=== PATIENT | male | born 1970 | race Caucasian/White ===

== ENCOUNTER 2017-09-24 15:18 | Emergency (ER) | payer SELFPAY ==
[2017-09-24] MEDS ORDERED: KETOROLAC TROMETHAMINE 60 MG/2 ML SDV IM ONE (18:46)
[2017-09-24] MEDS ORDERED: HYDROCODONE/ACETAMINOPHEN 5-325 MG (6 TAB/ER DISP) PO PRN ×2 (18:49)
[2017-09-24] MEDS ORDERED: HYDROCODONE/ACETAMINOPHEN 5-325 MG TABLET PO ONE (18:51)
--- NOTE | 2017-09-24 18:59 | ER Document Report ---
ED General - General Chief Complaint: Toothache Stated Complaint: TOOTH PAIN, BACK PAIN Time Seen by Provider: 09/24/17 17:59 Mode of Arrival: Ambulatory Information source: Patient, Friend - HPI Notes: A 47-year-old male presents today with complaints of left upper dental pain that has been bothering for approximately 3 weeks. Started taking his son's dose of PCN VK with minimal relief. pain is 6/10, achy and throbbing with eating. denies any fevers or chills. denies cp, sob, n/v/d, blurred vision, double vision. does not have a dentist. better with advil, worse with eating hard foods. reports cold sensitivity. smoker [id number] years. No throat swelling and difficulty tolerating secretions. Patient reports she has had chronic back pain, states his back pain is been bothering him for the last 6 years. Denies any bowel or bladder dysfunction. Denies any saddle anesthesia. Denies any numbness or tingling down bilateral lower extremities. Has not seen a orthopedic spinal specialist or primary care in the last year. Reports pain is 4 out of 10 in his lower back. Patient is in need of a primary care provider. - Related Data Allergies/Adverse Reactions: No Known Allergies Allergy (Unverified 09/24/17 15:21) Past Medical History - General Information source: Patient, Friend - Social History Smoking Status: Current Every Day Smoker Family History: Arthritis, CAD, Hyperlipidemia, Hypertension Patient has suicidal ideation: No Patient has homicidal ideation: No Renal/ Medical History: Denies: Hx Peritoneal Dialysis Review of Systems - Review of Systems Constitutional: No symptoms reported EENT: See HPI Cardiovascular: No symptoms reported Respiratory: No symptoms reported Gastrointestinal: No symptoms reported Genitourinary: No symptoms reported Male Genitourinary: No symptoms reported Musculoskeletal: No symptoms reported Skin: No symptoms reported Hematologic/Lymphatic: No symptoms reported Neurological/Psychological: No symptoms reported Physical Exam - Vital signs Vitals: Temp Pulse Resp BP Pulse Ox 98.3 F 79 18 133/102 H 98 09/24/17 15:24 09/24/17 15:24 09/24/17 15:24 09/24/17 15:24 09/24/17 15:24 - Notes Notes: PHYSICAL EXAMINATION: GENERAL: Well-appearing, well-nourished and in no acute distress. HEAD: Atraumatic, normocephalic. EYES: Pupils equal round and reactive to light, extraocular movements intact, sclera anicteric, conjunctiva are normal. ENT: Nares patent, oropharynx clear without exudates. Moist mucous membranes.# 15, 16 gingiva with swelling, erythema and induration. No drainage or open wounds. No fluctuance. No facial swelling. Poor oral dentition, left upper jaw with extensive dental caries, no definite swelling or effusion. NECK: Normal range of motion, supple without lymphadenopathy LUNGS: Breath sounds clear to auscultation bilaterally and equal. No wheezes rales or rhonchi. HEART: Regular rate and rhythm without murmurs ABDOMEN: Soft, nontender, nondistended abdomen. No guarding, no rebound. No masses appreciated. Musculoskeletal: Normal range of motion, no pitting or edema. No cyanosis. straight leg test positive bilaterally. Pain with flexion and extension at 30 degrees. Normal hip rotation. DTR +2 in BLE equally. Normal motor and sensory function in BLE equally. Distal pulses + 2 BLE equally. Noted paraspinal tenderness near L2 and L3. No spinal tenderness. No CVA tenderness bilaterally. Femoral pulses + 2 bilaterally and equally. No abrasions, scars, lacerations, ecchymosis of any recent trauma. NEUROLOGICAL: Cranial nerves grossly intact. Normal speech, normal gait. Normal sensory, motor exams PSYCH: Normal mood, normal affect. SKIN: Warm, Dry, normal turgor, no rashes or lesions noted. Course - Re-evaluation Re-evalutation: 09/24/17 19:07 Cici with patient the importance of utilizing community resources such as the community care clinic. Discussed taking antibiotics as directed. Advised patient to follow-up with community resources for his chronic back pain as well as for his dental needs. Patient verbalized understanding of the resources, we discussed multiple ones, stated he would follow-up with community resources. Both patient and agreed with plan of care and agree with plan of care. 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 Most commonly the pain is due to straining of the muscles and ligaments in the low back. Usual treatment includes: (1) Rest on a firm surface. Avoid lying on your stomach. (2) Ice pack the painful area. After a few days, gentle heat may be used intermittently to relax the area, or ice packs can be continued. (3) Medication may be needed -- muscle relaxers and antiinflammatory medicines are commonly used. (4) As the back improves, exercises are prescribed to strengthen the back and abdominal muscles. Your doctor will advise you on the proper care for your back at each stage in your recovery. You may be better in a few days -- or healing may take several weeks. If new symptoms of a "herniated disc" (radiation of pain, numbness, or tingling down the back of the leg or weakness in the leg) occur, you should be re-examined. Further testing may be necessary. PAIN MEDICATION INJECTION: You have received an injection of a pain medication. You should experience significant pain relief within 45 minutes. If this injection was a narcotic -- it will impair your judgement, slow your reaction time and make you sleepy (as well as relieve your pain). Narcotics also can cause nausea. You should not drive, work with machinery, or perform any task requiring mental alertness until all effects of the medication are gone -- six to eight hours. Do not take any alcohol, or sedatives, and do not take any other medication without checking with your physician. ORAL NARCOTIC MEDICATION: You have been given a prescription for pain control. This medication is a narcotic. It's best taken with food, as nausea can result if taken on an empty stomach. Don't operate machinery or drive within six hours of taking this medication. Do not combine this medicine with alcohol, or with any medication which can cause sedation (such as cold tablets or sleeping pills) unless you get permission from the physician. Narcotics tend to cause constipation. If possible, drink plenty of fluids and eat a diet high in fiber and fruits. Please be aware that prescription narcotics also have the potential for abuse. People become addicted to these medications because of the general sense of wellbeing that they induce. This feeling along with a significant reduction in tension, anxiety, and aggression provides a stimulating seductive quality to these drugs. Once your pain is under control, we encourage you to discard your unused narcotics. MUSCLE RELAXERS: Muscle relaxing medications are usually prescribed for acute muscle spasm or injury to the neck and back. They are often combined with antiinflammatory pain medication for increased relief. You may stop the muscle relaxer when the pain and stiffness have improved. Start the medication again if spasms recur. Muscle relaxers may cause drowsiness, especially with the first dose. Do not operate machinery or drive while under the effects of the medication. Most muscle relaxers last up to 24 hours. Do not combine the medication with alcohol. ICE PACKS: Apply ice packs frequently against the painful area. Many different schedules are recommended, such as "20 minutes on, 20 minutes off" or "one hour ice, two hours rest." If you need to work, you may need to go longer between ice treatments. You should plan to have the area ice packed AT LEAST one fourth of the time. The ice should be applied over the wrap, tape, or splint, or over a layer of cloth -- not directly against the skin. Some ice bags have a built-in cloth and can be put directly on the skin. WARM PACKS: After approximately two days, apply gentle heat (such as a heating pad or hot water bottle) for about 20 to 30 minutes about every two hours -- at least four times daily. Warmth and elevation will help you make a more rapid recovery , and will ease the pain considerably. Do not use HOT heat, and never apply heat for longer than 30 minutes. The continuous heat can invisibly damage skin and muscles -- even when no burn is seen on the surface. Damaged muscles can make you MORE sore. FOLLOW-UP CARE: If you have been referred to a physician for follow-up care, call the physician s office for an appointment as you were instructed or within the next two days. If you experience worsening or a significant change in your symptoms, notify the physician immediately or return to the Emergency Department at any time for re-evaluation. TOOTHACHE: Your pain is due to dental decay. The tooth must be repaired in order for you to feel better. You will, therefore, be referred to a dentist. We do not have dentists on the staff at [facility]. Severe swelling or drainage around a tooth usually means a dental abscess. This also requires evaluation and treatment by the dentist, but antibiotics may be prescribed while awaiting dental treatment. You should be rechecked immediately if you develop major swelling of the face, increasing pain, a lump in the jaw or gums, headache, difficulty swallowing, or fever. ORAL NARCOTIC MEDICATION: You have been given a prescription for pain control. This medication is a narcotic. It's best taken with food, as nausea can result if taken on an empty stomach. Don't operate machinery or drive within six hours of taking this medication. Do not combine this medicine with alcohol, or with any medication which can cause sedation (such as cold tablets or sleeping pills) unless you get permission from the physician. Narcotics tend to cause constipation. If possible, drink plenty of fluids and eat a diet high in fiber and fruits. Please be aware that prescription narcotics also have the potential for abuse. People become addicted to these medications because of the general sense of wellbeing that they induce. This feeling along with a significant reduction in tension, anxiety, and aggression provides a stimulating seductive quality to these drugs. Once your pain is under control, we encourage you to discard your unused narcotics. CLINDAMYCIN: You have been given a prescription for the antibiotic clindamycin. It is often prescribed for infections in the mouth, such as dental infections or abscesses, and for skin infections due to MRSA. It's important that you take all the medication, unless instructed otherwise by your physician. Failure to complete the entire course can result in relapse of your condition. Common side effects of antibiotics include nausea, intestinal cramping, or diarrhea. Women may develop vaginal yeast infections, and babies can get yeast (thrush) in the mouth following the use of antibiotics. Contact your physician if you develop significant side effects from this medication. Allergy to this antibiotic can result in hives, wheezing, faintness, or itching. If symptoms of allergy occur, stop the medication and call the doctor. FOLLOW-UP CARE: You have been referred for follow-up care to the dentists listed below. Call the dentists office for an appointment as you were instructed or within the next two days. If you experience worsening or a significant change in your symptoms, notify the physician immediately or return to the Emergency Department at any time for re-evaluation. [facility] [address] [place], [place] [phone] [facility] [address] [place] [address] [facility] [address] [facility] [address] [facility] [address] [email or web address] [address] [place] [address] Saturday- 8:00am to 5:00 pm Will see patients from other [facility]. Charges based on income and family size and accepts Medicare, Medicaid, and Insurances Will pull molars [facility] [address] Hours of Operation 8:00 am - 4:30 pm weekdays The following dental offices accept Medicaid: [facility] Dr. Gordon Dr. Oglesby Dr. Zhu Dr. Rice Jovan Alfred Lutsavage, and [place] oral surgery Dr. Gonzalez ([place]) Dr. Hubbard ([place]ale Goldman) [facility] Drs. Brown and Jam ([place]) Dr. Garza ([place]) [facility] Dr. Lira ([place]) Drs. Frias and ([place]) Medicaid Care Line take oral abx as directed with food, eat yogurt daily to prevent loose stool. Take the medication as directed, do not drive, drink, operate machinery while taking medication. Warm compress to face 20 minutes on 20 minutes off several times a day. Follow up with dentist within 3 days. Follow up with community care clinic as well. Return immediately for any new or worsening symptoms. Follow up with primary care provider, call tomorrow to make followup appointment. Prescriptions: Cephalexin [Cephalexin 500 MG Tablet] 1 tab PO BID #20 tablet Referrals: IMRLANDE AGUILERA DO [NO LOCAL MD] - Follow up as needed FAINA RAPP MD [ACTIVE STAFF] - Follow up as needed
[2017-09-24 19:39] VITALS: BP 142/99
== END 2017-09-24 19:20 | disposition home or self-care (01) ==
LOC: ER 15:18
DX: K02.9 Dental caries, unspecified (principal); K08.89 Other specified disorders of teeth and supporting structures; M54.5 Low back pain; G89.29 Other chronic pain; F17.200 Nicotine dependence, unspecified, uncomplicated
CPT/HCPCS: 99282; 96372; J1885

== ENCOUNTER 2019-11-22 09:53 | Emergency (ER) | payer SELFPAY ==
[2019-11-22] MEDS ORDERED: LISINOPRIL 10 MG TABLET PO ONE (11:16)
[2019-11-22] MEDS ORDERED: AMLODIPINE BESYLATE 10 MG TABLET PO ONE (11:17)
[2019-11-22] MEDS ORDERED: AMLODIPINE BESYLATE 5 MG TABLET PO ONE (11:17)
--- NOTE | 2019-11-22 11:46 | RADIOLOGY REPORT (SQ) ---
EXAM DESCRIPTION: CHEST SINGLE VIEW COMPLETED DATE/TIME: 11/22/2019 11:28 am REASON FOR STUDY: HYPERTENSION COMPARISON: None. EXAM PARAMETERS: NUMBER OF VIEWS: One view. TECHNIQUE: Single frontal radiographic view of the chest acquired. RADIATION DOSE: NA LIMITATIONS: None. FINDINGS: LUNGS AND PLEURA: No opacities, masses or pneumothorax. No pleural effusion. MEDIASTINUM AND HILAR STRUCTURES: No masses. Contour normal. HEART AND VASCULAR STRUCTURES: Heart normal in size. Normal vasculature. BONES: No acute findings. HARDWARE: None in the chest. OTHER: No other significant finding. IMPRESSION: NO ACUTE RADIOGRAPHIC FINDING IN THE CHEST. TECHNICAL DOCUMENTATION: JOB ID: [id number] 2010 [employer]- All Rights Reserved Reading location - IP/workstation name: [email or web address]
--- NOTE | 2019-11-22 12:00 | RADIOLOGY REPORT (SQ) ---
EXAM DESCRIPTION: CT HEAD WITHOUT COMPLETED DATE/TIME: 11/22/2019 11:48 am REASON FOR STUDY: ALTERED MENTAL STATUS COMPARISON: None. TECHNIQUE: Axial images acquired through the brain without intravenous contrast. Images reviewed wi th bone, brain and subdural windows. Additional sagittal and coronal reconstructions were generated. Images stored on PACS. All CT scanners at this facility use dose modulation, iterative reconstruction, and/or weight based d osing when appropriate to reduce radiation dose to as low as reasonably achievable (ALARA). [facility]: Dose Right [facility]: CareDose [facility]: Dose Right [facility]: Teradose 4D [facility]: Smart Wand[employer]jia RADIATION DOSE: CT Rad equipment meets quality standard of care and radiation dose reduction techniq ues were employed. CTDIvol: 53.2 mGy. DLP: 964 mGy-cm. mGy. LIMITATIONS: None. FINDINGS: VENTRICLES: Normal size and contour. CEREBRUM: No masses. No hemorrhage. No midline shift. No evidence for acute infarction. Normal gra y/white matter differentiation. No areas of low density in the white matter. Incidental note is made of scant bilateral basal ganglia calcifications. CEREBELLUM: No masses. No hemorrhage. No alteration of density. No evidence for acute infarction. EXTRAAXIAL SPACES: No fluid collections. No masses. ORBITS AND GLOBE: No intra- or extraconal masses. Normal contour of globe without masses. CALVARIUM: No fracture. PARANASAL SINUSES: Left greater than right maxillary mucosal thickening without fluid levels. The pa ranasal sinuses and mastoid air cells are otherwise clear. SOFT TISSUES: No mass or hematoma. OTHER: No other significant finding. IMPRESSION: NO ACUTE INTRACRANIAL IMAGING FINDINGS. EVIDENCE OF ACUTE STROKE: NO. COMMENT: Quality ID # [id number]: Final reports with documentation of one or more dose reduction techniques (e.g., Automated exposure control, adjustment of the mA and/or kV according to patient size, use of iterative reconstruction technique) TECHNICAL DOCUMENTATION: JOB ID: [id number] 2010 [employer]- All Rights Reserved Reading location - IP/workstation name: [email or web address]
[2019-11-22 12:41] LABS: PROTHROMBIN TIME 13.2 SEC (11.4-15.4)
[2019-11-22 12:42] LABS: ABSOLUTE BASOPHILS # (AUTO) 0.1 10^3/uL (0.0-0.2); ABSOLUTE EOSINOPHILS # (AUTO) 0.2 10^3/uL (0.0-0.6); ABSOLUTE LYMPHOCYTES (AUTO) 2.2 10^3/uL (0.5-4.7); ABSOLUTE MONOCYTES (AUTO) 0.5 10^3/uL (0.1-1.4); APPEARANCE,URINE CLEAR; BASOPHILS % (AUTO) 0.5 % (0-2); BILIRUBIN,URINE NEGATIVE (NEGATIVE); COLOR,URINE YELLOW; EOSINOPHILS % (AUTO) 2.2 % (0-6); GLUCOSE, URINE NEGATIVE (NEGATIVE); HEMATOCRIT 46.3 % (37.9-51.0); KETONES,URINE NEGATIVE (NEGATIVE); LEUKOCYTE ESTERASE,URINE NEGATIVE (NEGATIVE); LYMPHOCYTES % (AUTO) 21.9 % (13-45); MEAN CORPUSCULAR HEMOGLOBIN 31.6 pg (27.0-33.4); MEAN CORPUSCULAR HGB CONC 34.6 g/dL (32.0-36.0); MEAN CORPUSCULAR VOLUME 91 fl (80-97); MONOCYTES % (AUTO) 5.5 % (3-13); NITRITE,URINE NEGATIVE (NEGATIVE); PARTIAL THROMBOPLASTIN TIME 31.3 SEC (23.5-35.8); PLATELET COUNT 209 10^3/uL (150-450); PROTEIN,URINE 30 mg/dL (NEGATIVE); RED BLOOD COUNT 5.07 10^6/uL (4.35-5.55); RED CELL DISTRIBUTION WIDTH 14.1 % (11.5-14.0); SEGMENTED NEUTROPHILS % (AUTO) 69.9 % (42-78); TOTAL CELLS COUNTED % (AUTO) 100 %; URINE SPECIFIC GRAVITY 1.014; UROBILINOGEN,URINE NEGATIVE mg/dL (<2.0); WHITE BLOOD COUNT 9.9 10^3/uL (4.0-10.5)
[2019-11-22 12:49] LABS: ALBUMIN 4.3 g/dL (3.5-5.0); ALKALINE PHOSPHATASE 103 U/L (38-126); ANION GAP 10 (5-19); ASPARTATE AMINO TRANSFERASE 28 U/L (17-59); BILIRUBIN,DIRECT 0.3 mg/dL (0.0-0.4); BILIRUBIN,TOTAL 0.9 mg/dL (0.2-1.3); BLOOD UREA NITROGEN 13 mg/dL (7-20); CALCIUM 8.5 mg/dL (8.4-10.2); CARBON DIOXIDE 23 mmol/L (22-30); CHLORIDE 107 mmol/L (98-107); GLUCOSE 109 mg/dL (75-110); POTASSIUM 4.1 mmol/L (3.6-5.0); TOTAL PROTEIN 7.6 g/dL (6.3-8.2)
[2019-11-22 12:56] LABS: URINE AMPHETAMINES SCREEN NEGATIVE; URINE BARBITURATES SCREEN NEGATIVE; URINE BENZODIAZEPINES SCREEN NEGATIVE; URINE COCAINE SCREEN NEGATIVE; URINE MARIJUANA (THC) SCREEN NEGATIVE; URINE METHADONE SCREEN NEGATIVE; URINE PHENCYCLIDINE SCREEN NEGATIVE
[2019-11-22 13:05] LABS: NT PRO BNP 40 pg/mL (<125)
[2019-11-22 13:06] LABS: TROPONIN I < 0.012 ng/mL
[2019-11-22 14:44] VITALS: BP 146/97
--- NOTE | 2019-11-22 16:43 | ER Document Report ---
Entered by LIDIA COPELAND SCRIBE 11/22/19 1048 Acting as scribe for:SP BENJAMIN MD ED General - General Chief Complaint: Dizziness Stated Complaint: DIZZINESS Time Seen by Provider: 11/22/19 10:20 Information source: Patient Notes: This 49 year old male patient presents to the emergency department today with complaints of not feeling right since this morning. Patient states he felt norm al last night, but could not think right this morning. Patient has a history of hypertension and has stopped taking his medications x2 days ago because he ran out. Patient denies chest pain. TRAVEL OUTSIDE OF THE [place] IN LAST 30 DAYS: No - Related Data Allergies/Adverse Reactions: No Known Allergies Allergy (Verified 12/19/17 11:34) Past Medical History - General Information source: Patient - Social History Smoking Status: Current Every Day Smoker Cigarette use (# per day): Yes Chew tobacco use (# tins/day): No Frequency of alcohol use: None Drug Abuse: None Family History: Arthritis, CAD, Hyperlipidemia, Hypertension Patient has suicidal ideation: No Patient has homicidal ideation: No - Past Medical History Cardiac Medical History: Reports: Hx Hypertension GI Medical History: Reports: Hx Hiatal Hernia Review of Systems - Review of Systems Constitutional: No symptoms reported EENT: No symptoms reported Cardiovascular: See HPI. denies: Chest pain Respiratory: No symptoms reported Gastrointestinal: No symptoms reported Genitourinary: No symptoms reported Male Genitourinary: No symptoms reported Musculoskeletal: No symptoms reported Skin: No symptoms reported Hematologic/Lymphatic: No symptoms reported Neurological/Psychological: See HPI -: Yes All other systems reviewed and negative Physical Exam - Vital signs Vitals: Resp Pulse Ox 25 H 98 11/22/19 10:21 11/22/19 10:21 - General General appearance: Appears well, Alert - HEENT Head: Normocephalic, Atraumatic Eyes: Normal Pupils: PERRL Ears: Normal External canal: Normal Tympanic membrane: Normal - Respiratory Respiratory status: No respiratory distress Chest status: Nontender Breath sounds: Normal - Cardiovascular Rhythm: Regular Heart sounds: Normal auscultation Murmur: No - Abdominal Inspection: Normal Distension: No distension Bowel sounds: Normal Tenderness: Nontender - Extremities General upper extremity: Normal inspection. No: Edema General lower extremity: Normal inspection. No: Edema - Neurological Neuro grossly intact: Yes Cognition: Normal Orientation: AAOx4 [place] Coma Scale Verbal: Oriented Arlen Coma Scale Motor: Obeys Commands Speech: Normal Motor strength normal: LUE, RUE, LLE, RLE - Psychological Associated symptoms: Normal affect, Normal mood - Skin Skin Temperature: Warm Skin Moisture: Dry Skin Color: Normal Course - Re-evaluation Re-evalutation: 11/22/19 14:11 Patient has walked to the bathroom on more than one occasion and not showing any signs of of ataxia or abnormalities with his gait. Patient is walking independent without any cane or or other prosthetic support. - Vital Signs Vital signs: Temp Pulse Resp BP Pulse Ox 98.3 F 18 146/97 H 94 11/22/19 14:38 11/22/19 14:38 11/22/19 14:38 11/22/19 14:38 - Laboratory Result Diagrams: 11/22/19 11:40 11/22/19 11:40 Laboratory results interpreted by me: 11/22/19 11/22/19 11:40 11:40 RDW 14.1 H Urine Protein 30 H Discharge - Discharge Clinical Impression: Accelerated hypertension Condition: Stable Disposition: HOME, SELF-CARE Instructions: Dizziness ([facility]) Additional Instructions: You have elevated blood pressure today due to running out of your medications. Your blood pressure has improved putting you back on your usual dosing of antihypertensive medications. Please follow-up with your primary care provider we have provided you 30 days worth of your 2 antihypertensive medications. Continue to follow those instructions, and hopefully you will be able to get in touch with your primary care provider to allow you to continue your your medications. Prescriptions: Amlodipine Besylate [Norvasc 5 mg Tablet] 5 mg PO DAILY 30 Days #30 tablet Lisinopril [Zestril] 40 mg PO DAILY #30 tablet ED NIH Stroke Scale - NIH Stroke Scale *: 1. NIH scale should be completed with appropriate accompanying assessment tools. *: 2. The NIH should reflect what the patient is capable of doing and should not be coached by the clinician. 1a. Level of Consciousness: 0=Alert;keenly responsive -: 1=Drowsy -: 2=Obtunded -: 3=Coma/unresponsive or reflex to noxious stimuli. 1a. Responses: 0 1b. Orientation Questions: a. What month is it? -: b. How old are you? -: 0=Answers both questions correctly. -: 1=Answers one question correctly or patient is intubated or has orotracheal trauma. -: 2=Answers neither question correctly. 1b. Responses: 0 1c. Response to commands: a. Open and close eyes? -: b. [employer] and release hand? -: Credit is given despite weakness. Demonstration of task is permitted. Substitute command if hands cannot be used. -: 0=Performs both tasks correctly -: 1=Performs one task correctly -: 2=Performs neither task correctly 1c. Responses: 0 2. Gaze: Establish eye contact and instruct patient to "Follow my finger" -: 0=Normal -: 1=Partial gaze palsy. Gaze is abnormal in one or both eyes, but where forced deviation or total gaze paresis is not present. -: 2=Forced deviation or total gaze paresis. 2. Responses: 0 3. Visual Muñoz: Sees fingers in all four quadrants. -: 0=No visual loss. -: 1=Partial hemianopsia. -: 2=Complete hemianopsia. -: 3=Bilateral hemianopsia (including Cortical blindness) 3. Responses: 2 4. Facial Movement: Instruct patient to: -: a. Show me your teeth -: b. Raise your eyebrows -: c. Close your eyes -: d. Smile -: 0=Normal symmetrical movement -: 1=Minor paralysis (flattened nasolabial fold, asymmetry on smiling). -: 2=Partial paralysis (total or near total paralysis of lower face). -: 3=Complete paralysis of upper and lower face 4. Responses: 0 5. Motor functions (left arm): Alternate sides and extend each arm with palms down (90 degrees if sitting or 45 degrees for supine). -: 0=No drift;limb holds for full 10 seconds. -: 1=Drift; limb holds but drifts down before full 10 seconds, but does not hit bed. -: 2=Some effort against gravity; limb cannot get to or maintain position. -: 3=No effort against gravity; limb falls. -: 4=No movement. -: UN=Amputation, joint fusion, explain in comments. 5. Responses (left arm): 0 5. Motor Functions (right arm): Alternate sides and extend each arm with palms down (90 degrees if sitting or 45 degrees for supine). -: 0=No drift;limb holds for full 10 seconds. -: 1=Drift; limb holds but drifts down before full 10 seconds, but does not hit bed. -: 2=Some effort against gravity; limb cannot get to or maintain position. -: 3=No effort against gravity; limb falls. -: 4=No movement. -: UN=Amputation, joint fusion, explain in comments. 5. Responses (right arm): 0 6. Motor Functions (left leg): With patient lying supine, alternate sides and extend each leg (30 degrees always while supine). -: 0=No drift, leg holds position for full 5 seconds -: 1=Drift; leg falls before full 5 seconds but does not hit bed. -: 2=Some effort against gravity, leg falls to bed but some effort against gravity. -: 3=No effort against gravity, leg falls to bed immediately. -: 4=No movement. -: UN=Amputation, joint fusion; explain in comments. 6. Responses (left leg): 0 6. Motor Functions (right leg): With patient lying supine, alternate sides and extend each leg (30 degrees always while supine). -: 0=No drift, leg holds position for full 5 seconds -: 1=Drift; leg falls before full 5 seconds but does not hit bed. -: 2=Some effort against gravity, leg falls to bed but some effort against gravity. -: 3=No effort against gravity, leg falls to bed immediately. -: 4=No movement. -: UN=Amputation, joint fusion; explain in comments. 6. Responses (right leg): 0 7. Limb Ataxia: With eyes open instruct patient to: -: a. "Touch your finger to your nose". -: b. "Touch your heel to your elliott" -: 0=Absent -: 1=Present in one limb. -: 2=Present in two limbs. -: UN=Amputation or joint fusion; explain in comments. 7. Responses: 0 8. Sensory: Test sensation using pinprick or noxious stimuli. Test as many body parts as possible. -: 0=Normal;no sensory loss -: 1=Mile to moderate sensory loss (patient feels pin prick but is less sharp on affected side). -: 2=Severe or total sensory loss. 8. Responses: 0 9. Best Language: Instruct patient to: -: a. "Describe what you see in this picture." -: b. "Name the items in this picture." -: c. "Read these sentences." -: 0=No aphasia, normal -: 1=Mild to moderate aphasia. -: 2=Severe aphasia -: 3=Mute, global aphasia, no usable speech or auditory comprehension. 9. Responses: 0 10. Articulation, Dysarthia: Instruct patient to: -: "Read these words" or "Repeat these words" -: 0=Normal -: 1=Mild to moderate; patient may slur some words but can be understood without difficulty. -: 2=Severe; patients speech so slurred as to be unintelligible in the absence of dysphasia. -: UN=Intubated or other physical barrier, explain in comments. 10. Responses: 0 11. Extinction or inattention: 0=No abnormality -: 1= Visual, tactile, auditory, spatial, or personal inattention or extinction to bilateral simulation in one or the sensory modalities. -: 2=Profound loren-inattention or loren-inattention to more than one modality; does not recognize own hand. 11. 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 I personally performed the services described in the documentation, reviewed and edited the documentation which was dictated to the scribe in my presence, and it accurately records my words and actions.
== END 2019-11-22 14:43 | disposition home or self-care (01) ==
LOC: ER 09:53
DX: R42 Dizziness and giddiness (principal); I10 Essential (primary) hypertension; F17.210 Nicotine dependence, cigarettes, uncomplicated; Z91.14 Patient's other noncompliance with medication regimen
CPT/HCPCS: 36415; 70450; 71045; 80053; 80307; 81001; 83880; 84484; 85025; 85610; 85730; 99284

== ENCOUNTER 2020-08-16 20:27 | Observation (INO) | payer SELFPAY ==
--- NOTE | 2020-08-16 21:31 | ER Document Report ---
ED Medical Screen (RME) - General Chief Complaint: Chest Pain Stated Complaint: CHEST PAIN Time Seen by Provider: 08/16/20 21:20 TRAVEL OUTSIDE OF THE [place] IN LAST 30 DAYS: No - HPI Notes: 08/16/20 21:29 50-year-old male with a history of COPD, hypertension presents to the emergency room for substernal chest pain that radiated to his back that started last night, lasted for few hours and went away. Reports the pain did radiate to his back. he reports the chest pain did come back today. Reports chest pain feels like a "squeezing, burning, pushing" pain. Feels like he was hit in the chest. Denies any shortness of breath nausea vomiting abdominal pain. Denies any dizziness, headache or blurred vision. Patient does smoke a pack a day for the last 30 years. Reports his mother had a heart attack at 52. 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 Denies any radiation of pain down left arm to jaw. Patient does take a baby aspirin daily I have greeted and performed a rapid initial assessment of this patient. A comprehensive ED assessment and evaluation of the patient, analysis of test results and completion of the medical decision making process will be conducted by additional ED providers. PHYSICAL EXAMINATION: GENERAL: Well-appearing, well-nourished and in no acute distress. CV: s1, s2 regular LUNGS: No respiratory distress Musculoskeletal: Normal range of motion - Related Data Allergies/Adverse Reactions: No Known Allergies Allergy (Verified 08/16/20 21:13) Home Medications: HTN Past Medical History - Social History Frequency of alcohol use: None Drug Abuse: None - Past Medical History Cardiac Medical History: Reports: Hx Hypertension Pulmonary Medical History: Reports: Hx COPD Renal/ Medical History: Denies: Hx Peritoneal Dialysis GI Medical History: Reports: Hx Hiatal Hernia Physical Exam - Vital signs Vitals: Temp Pulse Resp BP Pulse Ox 98.2 F 75 20 153/87 H 96 08/16/20 20:39 08/16/20 20:39 08/16/20 20:39 08/16/20 20:39 08/16/20 20:39 Course - Vital Signs Vital signs: Temp Pulse Resp BP Pulse Ox 98.2 F 75 20 153/87 H 96 08/16/20 20:39 08/16/20 20:39 08/16/20 20:39 08/16/20 20:39 08/16/20 20:39
[2020-08-16 22:02] LABS: ABSOLUTE EOSINOPHILS # (AUTO) 0.2 10^3/uL (0.0-0.6); ABSOLUTE LYMPHOCYTES (AUTO) 3.3 10^3/uL (0.5-4.7); ABSOLUTE MONOCYTES (AUTO) 0.7 10^3/uL (0.1-1.4); ABSOLUTE NEUT (AUTO) 6.1 10^3/uL (1.7-8.2); BASOPHILS % (AUTO) 0.5 % (0-2); HEMATOCRIT 45.8 % (37.9-51.0); HEMOGLOBIN 16.2 g/dL (13.5-17.0); LYMPHOCYTES % (AUTO) 31.8 % (13-45); MEAN CORPUSCULAR HEMOGLOBIN 32.2 pg (27.0-33.4); MEAN CORPUSCULAR HGB CONC 35.4 g/dL (32.0-36.0); MEAN CORPUSCULAR VOLUME 91 fl (80-97); MONOCYTES % (AUTO) 6.5 % (3-13); PLATELET COUNT 234 10^3/uL (150-450); RED BLOOD COUNT 5.03 10^6/uL (4.35-5.55); RED CELL DISTRIBUTION WIDTH 13.8 % (11.5-14.0); SEGMENTED NEUTROPHILS % (AUTO) 59.2 % (42-78); TOTAL CELLS COUNTED % (AUTO) 100 %; WHITE BLOOD COUNT 10.4 10^3/uL (4.0-10.5)
[2020-08-16 22:25] LABS: ALBUMIN 4.6 g/dL (3.5-5.0); ALKALINE PHOSPHATASE 83 U/L (38-126); ANION GAP 7 (5-19); ASPARTATE AMINO TRANSFERASE 29 U/L (17-59); BILIRUBIN,DIRECT 0.2 mg/dL (0.0-0.4); BILIRUBIN,TOTAL 0.8 mg/dL (0.2-1.3); BLOOD UREA NITROGEN 12 mg/dL (7-20); CALCIUM 10.9 mg/dL (8.4-10.2); CARBON DIOXIDE 33 mmol/L (22-30); CHLORIDE 97 mmol/L (98-107); CREATINE KINASE 89 U/L (55-170); GLUCOSE 105 mg/dL (75-110); POTASSIUM 3.9 mmol/L (3.6-5.0); TOTAL PROTEIN 7.6 g/dL (6.3-8.2)
--- NOTE | 2020-08-16 22:33 | RADIOLOGY REPORT (SQ) ---
EXAM DESCRIPTION: XR CHEST 1 VIEW COMPLETED DATE/TME: 08/16/2020 21:46 CLINICAL HISTORY: 50 years, Male, chest pain COMPARISON: Chest x-ray 11/22/2019 TECHNIQUE: PA view of the chest LIMITATIONS: None. FINDINGS: Cardiomediastinal silhouette is not enlarged. No suspicious acute lung or pleural abnormalities. Suspected old left upper rib fractures. IMPRESSION: No acute findings in chest. copyright 2010 [employer]- All Rights Reserved
[2020-08-16 22:37] LABS: CREATINE KINASE MB 1.44 ng/mL (<4.55)
[2020-08-16 22:38] LABS: TROPONIN I < 0.012 ng/mL
[2020-08-17] MEDS ORDERED: ASPIRIN 325 MG TABLET PO ONE (05:44)
[2020-08-17] MEDS: NITROGLYCERIN 0.4 MG/TAB 25 TAB/BOTTLE SL PRN ×3 (06:04→06:32)
--- NOTE | 2020-08-17 07:04 | ER Document Report ---
ED General - General Chief Complaint: Chest Pain Stated Complaint: CHEST PAIN Time Seen by Provider: 08/16/20 21:20 Notes: 50-year-old male heavy smoker without primary care for the last few years and with hypertension hyperlipidemia but not diabetes presents with chest pain. Been going on for 2-3 months but increasing in frequency. Described as pressure-like squeezing left-sided radiates to between shoulder blades intermittently, both at rest and with exertion. Increased frequency and has been worse in quality for 2 days. In mild pain while I am interviewing him. Of note he waited 9 hours in the waiting room and had 2 - troponins Has never had a stress test. Ongoing cough with sputum unchanged from baseline given smoking and no fevers. No ripping or tearing pain. TRAVEL OUTSIDE OF THE [place] IN LAST 30 DAYS: No - Related Data Allergies/Adverse Reactions: No Known Allergies Allergy (Verified 08/16/20 21:13) Home Medications: HTN Past Medical History - Social History Smoking Status: Current Every Day Smoker Frequency of alcohol use: None Drug Abuse: None Family History: Arthritis, CAD, Hyperlipidemia, Hypertension - Past Medical History Cardiac Medical History: Reports: Hx Hypertension Pulmonary Medical History: Reports: Hx COPD Renal/ Medical History: Denies: Hx Peritoneal Dialysis GI Medical History: Reports: Hx Hiatal Hernia Physical Exam - Vital signs Vitals: Temp Pulse Resp BP Pulse Ox 98.2 F 75 20 153/87 H 96 08/16/20 20:39 08/16/20 20:39 08/16/20 20:39 08/16/20 20:39 08/16/20 20:39 Course - Re-evaluation Re-evalutation: 08/17/20 07:17 Patient presents with chest pain for several months escalating in frequency most concerning for unstable angina in the setting of heavy smoking and other risk factors We will rule out dissection with CTA Clinical exam is normal Given nitro to some effect with slight decrease in pain. Of note he was given aspirin and I think he is low probability for dissection although going to scan him given that [facility] cannot take care of a dissection and I would like to know that this is absent prior to admitting him I consulted cardiology. Patient was seen by Dr. Whitfield who recommended admission inpatient echo and stress testing tomorrow assuming CTA negative - Vital Signs Vital signs: Temp Pulse Resp BP Pulse Ox 97.9 F 67 17 123/78 93 08/17/20 08:00 08/17/20 00:40 08/17/20 08:01 08/17/20 08:00 08/17/20 08:01 - Laboratory Results Result Diagrams: 08/16/20 21:39 08/16/20 21:39 Laboratory Results Interpreted: 08/16/20 21:39 Chloride 97 L Carbon Dioxide 33 H Calcium 10.9 H Critical Laboratory Results Reviewed: No Critical Results - Radiology Results Critical Radiology Results Reviewed: No Critical Results - EKG Interpretation by Nh EKG shows normal: Sinus rhythm Rate: Normal Rhythm: NSR When compared to previous EKG there are: Previous EKG unavailable - No ST elevation No depression Normal intervals Discharge - Discharge Clinical Impression: Chest pain, unspecified Qualifiers: Chest pain type: unspecified Qualified Code(s): R07.9 - Chest pain, unspecified Condition: Fair Disposition: ADMITTED OBSERVATION Admitting Provider: Sloan (Hospitalist) Unit Admitted: Telemetry
--- NOTE | 2020-08-17 07:29 | PDOC CONSULTATION ---
Consultation Consult Date: 08/17/20 Attending physician:: YOLANDA SHIPLEY Provider Consulted: MIKE BARRON Consult reason:: Chest pain History of Present Illness History of Present Illness: AUSTEN CADENA is a 50 year old male with history of hypertension, COPD, questionable hyperlipidemia, smoker of 1 pack/day for 40 years and with family history of premature coronary artery disease in his mother who had her first myocardial infarction at 52 who is consulted by the emergency department for evaluation of chest pain. The patient describes his chest pain as a pressure, diffusely localized in the chest. It had been recurrent on and off for several months however it became constant 2 days ago, it occasionally radiates to the left shoulder, there are no alleviating or exacerbating factors and is not associated with shortness of breath, palpitations, dizziness, lightheadedness, diaphoresis, syncope or presyncope. Physical exam on 08/17/2020: GENERAL: Obese. Pleasant and conversational. Oriented x3 with normal mood. Not in acute distress. Well groomed and well developed. HEENT: Normocephalic, atraumatic. Pupils equal. Sclerae anicteric. Oropharynx moist. NECK: No JVD. No carotid bruits. LUNGS: Clear to auscultation bilaterally. Normal respiratory effort without the use of accessory muscles or intercostal retractions. CARDIOVASCULAR: Regular rate and rhythm, normal S1 and S2 without murmurs, rub s, or gallops. PMI not displaced. ABDOMEN: No masses or tenderness to palpation. No bruit. No splenomegaly or hepatomegaly. No abdominal aorta bruit noted. EXTREMITIES: No edema, no cyanosis, no clubbing. +2 pulses femoral and pedal pulses bilaterally. SKIN: No lesions or rashes. MUSCULOSKELETAL: No chest tenderness to palpation. NEUROLOGIC: Nonfocal. No gross sensory or motor deficits bilateral upper or lower extremities. Past Medical History Cardiac Medical History: Reports: Hypertension Pulmonary Medical History: Reports: Chronic Obstructive Pulmonary Disease (COPD) GI Medical History: Reports: Hiatal Hernia Social History Smoking Status: Current Every Day Smoker Family History Family History: Arthritis, CAD, Hyperlipidemia, Hypertension Parental Family History Reviewed: Yes Children Family History Reviewed: Yes Sibling(s) Family History Reviewed.: Yes Medication/Allergy Home Medications: Cephalexin [Cephalexin 500 MG Tablet] 1 tab PO BID #20 tablet 09/24/17 Diazepam [Valium 5 mg Tablet] 5 mg PO QIDP PRN #15 tablet 12/19/17 Hydrocodone/Acetaminophen [[place]ry 5-325 mg Tablet] 2 tab PO Q6H PRN #15 tab 12/19/17 Amlodipine Besylate [Norvasc 5 mg Tablet] 5 mg PO DAILY 30 Days #30 tablet 11/22/19 Lisinopril [Zestril] 40 mg PO DAILY #30 tablet 11/22/19 Allergies/Adverse Reactions: No Known Allergies Allergy (Verified 08/16/20 21:13) Physical Exam Vital Signs: Temp Pulse Resp BP Pulse Ox 98.0 F 67 16 106/59 L 90 L 08/17/20 00:40 08/17/20 00:40 08/17/20 06:39 08/17/20 06:39 08/17/20 06:39 Intake & Output 08/16/20 08/17/20 08/18/20 06:59 06:59 06:59 Weight 102.058 kg Results Laboratory Results: 08/16/20 21:39 08/16/20 21:39 08/16/20 08/16/20 21:39 21:39 WBC 10.4 RBC 5.03 Hgb 16.2 Hct 45.8 MCV 91 MCH 32.2 MCHC 35.4 RDW 13.8 Plt Count 234 Seg Neutrophils % 59.2 Sodium 137.3 Potassium 3.9 Chloride 97 L Carbon Dioxide 33 H Anion Gap 7 BUN 12 Creatinine 0.82 Est GFR ( Amer) > 60 Glucose 105 Calcium 10.9 H Total Bilirubin 0.8 AST 29 Alkaline Phosphatase 83 Total Protein 7.6 Albumin 4.6 08/16/20 08/16/20 08/17/20 21:39 21:39 01:25 Creatine Kinase 89 CK-MB (CK-2) 1.44 Troponin I < 0.012 < 0.012 Impressions: Chest X-Ray 08/16/20 21:29 IMPRESSION: No acute findings in chest. copyright 2011 [employer]- All Rights Reserved 08/16/20 21:39 08/16/20 21:39 MCV 91 fl (80-97) 08/16/20 21:39 MCH 32.2 pg (27.0-33.4) 08/16/20 21:39 MCHC 35.4 g/dL (32.0-36.0) 08/16/20 21:39 RDW 13.8 % (11.5-14.0) 08/16/20 21:39 Seg Neutrophils % 59.2 % (42-78) 08/16/20 21:39 Chloride 97 mmol/L (98-107) L 08/16/20 21:39 Carbon Dioxide 33 mmol/L (22-30) H 08/16/20 21:39 Anion Gap 7 (5-19) 08/16/20 21:39 Est GFR ( Amer) > 60 (>60) 08/16/20 21:39 Glucose 105 mg/dL (75-110) 08/16/20 21:39 Calcium 10.9 mg/dL (8.4-10.2) H 08/16/20 21:39 Total Bilirubin 0.8 mg/dL (0.2-1.3) 08/16/20 21:39 AST 29 U/L (17-59) 08/16/20 21:39 Alkaline Phosphatase 83 U/L (38-126) 08/16/20 21:39 Total Protein 7.6 g/dL (6.3-8.2) 08/16/20 21:39 Albumin 4.6 g/dL (3.5-5.0) 08/16/20 21:39 08/16/20 08/16/20 08/17/20 21:39 21:39 01:25 Creatine Kinase 89 CK-MB (CK-2) 1.44 Troponin I < 0.012 < 0.012 Current Medication List Generic Name Dose Route Start Last Admin Trade Name Freq PRN Reason Stop Dose Admin Nitroglycerin 1 tab 08/17/20 05:43 08/17/20 06:32 Nitroglycerin 0.4 Mg/Tab 25 Tab/Bottle SL 09/16/20 05:42 1 tab Q5MP PRN Administration FOR CHEST PAIN Discontinued Medications Generic Name Dose Route Start Last Admin Trade Name Freq PRN Reason Stop Dose Admin Aspirin 325 mg 08/17/20 05:44 08/17/20 06:04 Aspirin 325 Mg Tablet PO 08/17/20 05:45 325 mg NOW ONE Administration Assessment & Plan - Diagnosis (1) Chest pain Is this a current diagnosis for this admission?: Yes Plan: 50-year-old male with cardiac risk factors of sedentary lifestyle, obesity, hypertension, gender, tobacco use and family history of premature coronary artery disease who has been having intermittent chest pain for several months which had been now constantly present for the last 2 days in the setting of a normal cardiovascular exam, vital signs and normal cardiac troponins x2. His EKG is also benign as well as his chest x-ray. I do not believe his current chest pain is ischemic in etiology particularly as it had been present constantly for 2 days with normal cardiac enzymes however it is unclear whether his intermittent chest pain in the past several months is similar to his current chest pain. In the end, the patient needs further ischemic risk stratification with pharmacological nuclear stress test given his significant coronary artery risk factors. Of note, a bedside echocardiogram with index chest pain present demonstrated a normal ejection fraction without regional wall motion abnormalities with the possibility of an anterior pericardial effusion. Recommendations: -Admit to the hospital for further ischemic work-up. -Cardiac telemetry. -Hospitalist team to assess his noncardiac chest pain and treat it accordingly. -Fasting lipid panel. -Echocardiogram today. -Check troponin one more time. -Keep patient n.p.o. after midnight tonight in preparation for Lexiscan nuclear stress test tomorrow. -Lexiscan stress test on 08/18/2020. (2) Hypertension Qualifiers: Hypertension type: essential hypertension Qualified Code(s): I10 - Essential (primary) hypertension Plan: His blood pressure is at goal while in the emergency room. We will continue his outpatient medical regimen. (3) Tobacco use disorder, continuous Plan: I discussed with the patient importance of quitting smoking. Recommendations: -Hospitalist team to address tobacco cessation strategies.
--- NOTE | 2020-08-17 08:22 | RADIOLOGY REPORT (SQ) ---
EXAM DESCRIPTION: CTA ABDOMEN/PELVIS W WO IMAGES COMPLETED DATE/TIME: 08/17/2020 8:08 am REASON FOR STUDY: Dissection COMPARISON: 08/16/2020 radiograph, 08/17/2020 CT TECHNIQUE: CT scan of the abdominal aorta extending to the iliac bifurcation performed with intraven ous contrast using helical scanning technique with dynamic intravenous contrast injection. Delayed i maging was obtained. Images reviewed with lung, soft tissue, and bone windows. Reconstructed coronal and sagittal MPR images reviewed. All images stored on PACS. Advanced 3D imaging as volume rendering, MIPS, SSD performed? yes All CT scanners at this facility use dose modulation, iterative reconstruction, and/or weight based d osing when appropriate to reduce radiation dose to as low as reasonably achievable (ALARA). [facility]: Dose Right [facility]: CareDose [facility]: Dose Right [facility]: Teradose 4D [facility]: [employer] CONTRAST TYPE AND DOSE: See chest RENAL FUNCTION: See chest LIMITATIONS: None. FINDINGS: AORTA AND VESSELS: No aneurysm. No dissection. Renal arteries, SMA, celiac without stenosi s. LUNG BASES: See chest. LIVER: Normal size. Low hepatic attenuation compatible steatosis. No focal lesions. No intrahepati c ductal dilation. SPLEEN: Normal size. No focal lesions. PANCREAS: No masses. No significant calcifications. No adjacent inflammation or peripancreatic fluid collections. Pancreatic duct not dilated. GALLBLADDER: Gallbladder is distended measuring 4.6 cm transversely. No wall thickening or radiopaqu e gallstones. No pericholecystic inflammatory change. ADRENAL GLANDS: No significant masses or asymmetry. RIGHT KIDNEY AND URETER: No mass, calculi or urinary tract obstruction. LEFT KIDNEY AND URETER: No mass, calculi or urinary tract obstruction. RETROPERITONEUM: Shotty retroperitoneal nodes without discrete adenopathy. Largest para-aortic node measures 8.5 mm in short axis (series 5, image 58). No retroperitoneal mass or hemorrhage. BOWEL AND PERITONEAL CAVITY: No evidence of intestinal obstruction. No focal bowel wall thickening. APPENDIX: Normal. ABDOMINAL WALL: No masses. No hernias. BONY STRUCTURES: No acute bony abnormality. No discrete lytic or blastic osseous lesions. 3-D IMAGING: Confirms the above findings. OTHER: No other significant finding. IMPRESSION: 1. NO ABDOMINAL AORTIC ANEURYSM, DISSECTION OR SIGNIFICANT STENOSIS. NO SIGNIFICANT FIN DINGS IN THE ABDOMEN. 2. MILDLY DISTENDED GALLBLADDER WITHOUT SECONDARY INFLAMMATORY CHANGE. NO RADIOPAQUE GALLSTONES. 3. SEE SAME-DAY CHEST TECHNICAL DOCUMENTATION: JOB ID: [id number] Quality ID # [id number]: Final reports with documentation of one or more dose reduction techniques (e.g., Au tomated exposure control, adjustment of the mA and/or kV according to patient size, use of iterative reconstruction technique) 2010 [employer]- All Rights Reserved Reading location - IP/workstation name: [facility] [email or web address]
--- NOTE | 2020-08-17 08:39 | RADIOLOGY REPORT (SQ) ---
EXAM DESCRIPTION: CTA CHEST IMAGES COMPLETED DATE/TIME: 08/17/2020 8:08 am REASON FOR STUDY: Dissection COMPARISON: 08/16/2020 radiograph TECHNIQUE: CT scan of the chest performed using helical scanning technique with dynamic intravenous contrast injection. Images reviewed with lung, soft tissue and bone windows. Reconstructed coronal and sagittal MPR images reviewed. Additional 3 dimensional post-processing performed to develop Maximal Intensity Projection images (CA P). All images stored on PACS. All CT scanners at this facility use dose modulation, iterative reconstruction, and/or weight based d osing when appropriate to reduce radiation dose to as low as reasonably achievable (ALARA). [facility]: Dose Right [facility]: CareDose [facility]: Dose Right [facility]: Teradose 4D [facility]: [employer] CONTRAST TYPE AND DOSE: contrast/concentration: Isovue 350.00 mmol/ml; Total Contrast Delivered: 100 .0 ml; Total Saline Delivered: 70.0 ml Contrast bolus optimized for aorta and suboptimal for evaluation pulmonary arteries. RENAL FUNCTION: Creatinine 0.82 RADIATION DOSE: CT Rad equipment meets quality standard of care and radiation dose reduction techniq ues were employed. CTDIvol: 17.0 - 22.2 mGy. DLP: 2480 mGy-cm. . LIMITATIONS: None. FINDINGS: LUNGS AND PLEURA: No masses, infiltrates, or pneumothorax. No pleural effusions or pleura l calcifications. AORTA AND GREAT VESSELS: No aneurysm. No dissection. Great vessel origin is unremarkable. HEART: No pericardial effusion. No significant coronary artery calcifications. Normal right to left ventricular ratio. PULMONARY ARTERIES: Ill-defined decreased attenuation within the left main pulmonary artery, likely s econdary to poor bolus timing. Contrast bolus optimized for aorta. HILAR AND MEDIASTINAL STRUCTURES: No identified masses or abnormal nodes. HARDWARE: None in the chest. UPPER ABDOMEN: See separate report of the CT of the abdomen. THYROID AND OTHER SOFT TISSUES: No masses. No adenopathy. BONES: No acute bony abnormality. No suspicious lytic or blastic osseous lesions. 3D MIPS: Confirm findings. OTHER: No other significant finding. IMPRESSION: 1. No evidence of acute aortic pathology or other acute intrathoracic process. Subopti mal bolus timing for evaluation of pulmonary embolus. 2. See same-day abdomen CT for findings below the diaphragm. COMMENT: Quality ID # [id number]: Final reports with documentation of one or more dose reduction techniques (e.g., Automated exposure control, adjustment of the mA and/or kV according to patient size, use of iterative reconstruction technique) TECHNICAL DOCUMENTATION: JOB ID: [id number] 2010 [employer]- All Rights Reserved Reading location - IP/workstation name: [email or web address]
[2020-08-17] MEDS ORDERED: DEXTROSE 40% GEL 15 GM TUBE PO PRN ×2 (08:50)
[2020-08-17] MEDS ORDERED: DEXTROSE 50%-WATER 25 GM/50 ML DISP.SYRIN IV PRN ×2 (08:50)
[2020-08-17] MEDS ORDERED: GLUCAGON,HUMAN RECOMB 1 MG INJ SUBCUT PRN (08:50)
[2020-08-17] MEDS ORDERED: ACETAMINOPHEN 325 MG TABLET PO PRN (09:39)
[2020-08-17] MEDS ORDERED: PANTOPRAZOLE SODIUM 20 MG TABLET.DR PO SCH (09:45)
[2020-08-17] MEDS ORDERED: (PENDING PHARMACY ID) (Lisinopril [Zestril] 40 MG Tablet) PO SCH (10:00)
[2020-08-17] MEDS: NICOTINE 21 MG/24 HR PATCH.TD24 TD SCH (11:08)
[2020-08-17] MEDS: ASPIRIN 81 MG TABLET, ENT COATED PO SCH (11:09)
[2020-08-17] MEDS: AMLODIPINE BESYLATE 5 MG TABLET PO SCH (11:09)
[2020-08-17] MEDS: LISINOPRIL 10 MG TABLET PO SCH (11:09)
[2020-08-17] MEDS: IBUPROFEN 600 MG TABLET PO SCH ×2 (11:14→16:24)
--- NOTE | 2020-08-17 15:32 | PDOC H&P ---
History of Present Illness Admission Date/PCP: 08/17/20 08:25 Patient complains of: Chest pain History of Present Illness: AUSTEN CADENA is a 50 year old male with history of HTN and COPD who presented to the ED today with concerns regarding chest pain. Reports 2 day history of substernal chest pressure that radiates to left shoulder and back. Has experienced similar pain intermittently in the past, differentiates this time, as it is now constant. Denies alleviating/exacerbating symptoms. He denies associated SOB, palpitations, lightheadedness, diaphoresis, syncope or presyncope. Upon further questioning patient admits to reflux symptoms including cough and burning in throat, primarily in the mornings and following spicy meals. He has never been dx'd with reflux and denies previous tx. Patient is not followed by PCP or corn shredder. Last evaluated by PCP x2 years ago. He takes Amlodipine and Lisinopril for his HTN. No COPD treatment at home. Does have a "daily cough" which he relates to his 40yr hx of cigarette use. Smokes 1 ppd. He has rather significant cardiac FMHx with mother [place] age 52, and maternal grandmother [place]. Evaluation in the ED pt hemodynamically stable, VSS WNL. Negative cardiac enzymes x3. EKG without ischemic changes. CXR, CT abd/chest all without acute findings. Patient was evaluated by cardiology, Dr. Whitfield, in the Ed. Who recommends Laxiscan stress test on 08/18/2020 given pt's presenting symptoms and cardiac risk factors patient will be admitted to the hospitalist team for further evaluation, observation and treatment. Past Medical History Cardiac Medical History: Reports: Hypertension Denies: Atrial Fibrillation, Congestive Heart Failure, Coronary Artery Disease, DVT, Heart Murmur Pulmonary Medical History: Reports: Chronic Obstructive Pulmonary Disease (COPD) Neurological Medical History: Denies: Hemorrhagic CVA, Ischemic CVA Endocrine Medical History: Denies: Diabetes Mellitus Type 2, Hyperthyroidism, Hypothyroidism Renal/ Medical History: Denies: Chronic Kidney Disease GI Medical History: Reports: Hiatal Hernia Denies: Gastroesophageal Reflux Disease Psychiatric Medical History: Denies: Depression Hematology: Denies: Hemophilia, Bleeding Tendencies Past Surgical History Past Surgical History: Reports: None Social History Information Source: Patient Lives with: Spouse/Significant other Smoking Status: Current Every Day Smoker Cigarettes Packs Per Day: 1.5 Electronic Cigarette use?: No Frequency of Alcohol Use: None Hx Recreational Drug Use: No Drugs: None Hx Prescription Drug Abuse: No - Advance Directive Resuscitation Status: Full Code Family History Family History: Arthritis, CAD - [place] mother, Hyperlipidemia, Hypertension Parental Family History Reviewed: Yes Children Family History Reviewed: Yes Sibling(s) Family History Reviewed.: Yes Medication/Allergy Home Medications: Amlodipine Besylate [Norvasc 5 mg Tablet] 5 mg PO DAILY 30 Days #30 tablet 11/22/19 Lisinopril [Zestril] 40 mg PO DAILY #30 tablet 11/22/19 Aspirin [Ecotrin 81 mg EC Tablet] 81 mg PO DAILY 08/17/20 Allergies/Adverse Reactions: No Known Allergies Allergy (Verified 08/17/20 09:29) Review of Systems Constitutional: ABSENT: chills, fatigue, fever(s), headache(s), night sweats, weakness Eyes: ABSENT: visual disturbances Ears: ABSENT: hearing changes Nose, Mouth, and Throat: ABSENT: headache(s), sore throat, vertigo Cardiovascular: PRESENT: chest pain. ABSENT: dyspnea on exertion, edema, orthropnea, palpitations Respiratory: ABSENT: cough, dyspnea Gastrointestinal: ABSENT: abdominal pain, constipation, diarrhea, nausea, vomiting Genitourinary: ABSENT: difficulty urinating, dysuria Integumentary: ABSENT: diaphoresis, erythema, pruritus Neurological: ABSENT: abnormal speech, confusion, dizziness, frequent falls, lack of coordination, numbness, paresthesias, syncope, weakness Psychiatric: ABSENT: anxiety, depression Hematologic/Lymphatic: ABSENT: easy bruising Physical Exam Vital Signs: Temp Pulse Resp BP Pulse Ox 98.0 F 81 14 135/81 H 94 08/17/20 11:05 08/17/20 11:05 08/17/20 11:05 08/17/20 11:05 08/17/20 11:05 Intake & Output 08/16/20 08/17/20 08/18/20 06:59 06:59 06:59 Weight 102.058 kg General appearance: PRESENT: no acute distress, cooperative, obese Head exam: PRESENT: atraumatic, normocephalic Eye exam: PRESENT: EOMI, PERRLA. ABSENT: scleral icterus Mouth exam: PRESENT: moist, tongue midline Neck exam: PRESENT: full ROM. ABSENT: JVD, lymphadenopathy, tenderness Respiratory exam: PRESENT: clear to auscultation ketan, unlabored. ABSENT: decreased breath sounds, tachypnea, wheezes Cardiovascular exam: PRESENT: RRR, +S1, +S2. ABSENT: diastolic murmur, systolic murmur Pulses: PRESENT: normal radial pulses GI/Abdominal exam: PRESENT: normal bowel sounds, soft. ABSENT: tenderness Extremities exam: PRESENT: full ROM. ABSENT: clubbing, pedal edema, tenderness Musculoskeletal exam: PRESENT: ambulatory, full ROM. ABSENT: deformity, disloca tion Neurological exam: PRESENT: alert, awake, oriented to person, oriented to place, oriented to time, oriented to situation, CN II-XII grossly intact Psychiatric exam: PRESENT: appropriate affect, normal mood Skin exam: PRESENT: dry, intact. ABSENT: rash Results Laboratory Results: 08/16/20 21:39 08/16/20 21:39 08/16/20 08/16/20 21:39 21:39 WBC 10.4 RBC 5.03 Hgb 16.2 Hct 45.8 MCV 91 MCH 32.2 MCHC 35.4 RDW 13.8 Plt Count 234 Seg Neutrophils % 59.2 Sodium 137.3 Potassium 3.9 Chloride 97 L Carbon Dioxide 33 H Anion Gap 7 BUN 12 Creatinine 0.82 Est GFR ( Amer) > 60 Glucose 105 Calcium 10.9 H Total Bilirubin 0.8 AST 29 Alkaline Phosphatase 83 Total Protein 7.6 Albumin 4.6 08/16/20 08/16/20 08/17/20 21:39 21:39 01:25 Creatine Kinase 89 CK-MB (CK-2) 1.44 Troponin I < 0.012 < 0.012 08/17/20 10:17 Creatine Kinase CK-MB (CK-2) Troponin I < 0.012 Impressions: Chest X-Ray 08/16/20 21:29 IMPRESSION: No acute findings in chest. copyright 2011 [employer]- All Rights Reserved Abdomen/Pelvis CTA 08/17/20 07:04 IMPRESSION: 1. NO ABDOMINAL AORTIC ANEURYSM, DISSECTION OR SIGNIFICANT STENOSIS. NO SIGNIFICANT FINDINGS IN THE ABDOMEN. 2. MILDLY DISTENDED GALLBLADDER WITHOUT SECONDARY INFLAMMATORY CHANGE. NO RADIOPAQUE GALLSTONES. 3. SEE SAME-DAY CHEST Chest/Abdomen CTA 08/17/20 07:04 IMPRESSION: 1. No evidence of acute aortic pathology or other acute intrathoracic process. Suboptimal bolus timing for evaluation of pulmonary embolus. 2. See same-day abdomen CT for findings below the diaphragm. Assessment and Plan - Diagnosis (1) Chest pain Is this a current diagnosis for this admission?: Yes Plan: Etiology unknown. Troponins negative. EKg without ischemia. Chest x-ray and chest CT without acute findings. Denies known hx GERD, given hx daily cough, and the nature of CP (several months in duration), and obesity, may be secondary to reflux. Implement daily Protonix. Dr. Whitfield, cardiology, on board. Repeat echo ordered, pending Fasting lipid panel ordered with morning labs Lexiscan nuclear stress test 08/18/2020 - Pt made npo after midnight. (2) Hypertension Qualifiers: Hypertension type: essential hypertension Qualified Code(s): I10 - Essential (primary) hypertension Is this a current diagnosis for this admission?: Yes Plan: Home medications include Lisinopril and amlodipine. Cnt home regimen. Cnt to monitor BP. (3) COPD (chronic obstructive pulmonary disease) Qualifiers: COPD type: unspecified COPD Qualified Code(s): J44.9 - Chronic obstructive pulmonary disease, unspecified Is this a current diagnosis for this admission?: Yes Plan: Hx COPD, not currently treated with medications. Symptoms related to his COPD including SOB and cough primarily in morning/with heavy exertion. mMRC breathlessness scale 1. CAT >10. Without exacerbations. Indication for daily tx. Initiate Breo inhaler. (4) GERD (gastroesophageal reflux disease) Qualifiers: Esophagitis presence: esophagitis presence not specified Qualified Code(s): K21.9 - Gastro-esophageal reflux disease without esophagitis Is this a current diagnosis for this admission?: Yes Plan: Without previous hx GERD, as did not previously seek treatment. Admits to skilled nursing reflux and cough, primarily in the morning/following spicy meals. This very well may be cause/factor of chest irritation. Initiate Protonix 40mg BID PO. Patient educated on sleeping with head elevated, to decrease reflux. Patient educated on keeping food/symptom relational diary. Educated on foods to avoid and habits such as tobacco use, to avoid. Plan to cnt PPI therapy as outpatient. (5) Tobacco use disorder, continuous Is this a current diagnosis for this admission?: Yes Plan: 40 year x daily cigarette use, smokes 1 pack/day. Patient consulted and educated on cigarette cessation > 3 minutes. Initiate nicotine patch. - Time Time Spent with patient: 35 or more minutes Medications reviewed and adjusted accordingly: Yes Anticipated Discharge Disposition: Home, Self Care Anticipated Discharge Timeframe: within 24 hours
[2020-08-17] MEDS: PANTOPRAZOLE SODIUM 40 MG TABLET.DR PO SCH (16:23)
[2020-08-17] MEDS: FLUTICASONE/VILANTEROL 100-25 MCG/DOSE IH SCH (16:24)
--- NOTE | 2020-08-17 18:44 | EKG REPORT ---
SEVERITY:- OTHERWISE NORMAL ECG - SINUS RHYTHM BORDERLINE LEFT AXIS DEVIATION : Confirmed by: Alex Benavides 17-Aug-2020 18:43:41
--- NOTE | 2020-08-17 21:54 | XCELERA REPORT ---
[address] [address] Transthoracic Echocardiogram Report Name: AUSTEN CADENA Age: 50 yrs Gender: Male : 1970 Patient Status: Inpatient Patient Location: [facility]A Study Date: 08/17/2020 03:09 PM Height: 67 in Weight: 225 lb BSA: 2.1 m2 Procedure: A complete two-dimensional transthoracic echocardiogram was performed (2D, M-mode, spectral and color flow Doppler). The study was technically difficult with many images being suboptimal in quality. Reason For Study: Chest pain Ordering Physician: JOSE G IRELAND Performed By: Glenda Chu Interpretation Summary The left ventricle is grossly normal size. Left ventricular systolic function is normal. The Ejection Fraction estimate is 60-65%. Doppler measurements suggest impaired left ventricular relaxation, which is associated with grade I/IV or mild diastolic dysfunction. No regional wall motion abnormalities noted. The left ventricular apex is not well visualized. Thrombus can not be excluded. Trace anterior and apical, hemodynamically insignificant pericardial effusion. No prior studies for comparison. MMode/2D Measurements & Calculations RVDd: 3.0 cm LVIDd: 4.9 cm FS: 40.8 % Ao root diam: 2.9 cm IVSd: 1.00 cm LVIDs: 2.9 cm EDV(Teich): 111.6 ml Ao root area: 6.5 cm2 LVPWd: 1.0 cm ESV(Teich): 31.9 ml LA dimension: 3.0 cm EF(Teich): 71.4 % Doppler Measurements & Calculations MV E max kyler: MV P1/2t max kyler: Ao V2 max: LV V1 max P.2 cm/sec 55.5 cm/sec 149.4 cm/sec 4.3 mmHg MV A max kyler: MV P1/2t: 89.9 msec Ao max PG: LV V1 max: 65.1 cm/sec MVA(P1/2t): 2.4 cm2 9.0 mmHg 103.9 cm/sec MV E/A: 0.85 MV dec slope: 181.0 cm/sec2 MV dec time: 0.27 sec PA V2 max: MV P1/2t-pr_phl: 71.0 cm/sec 89.9 msec PA max P.0 mmHg Left Ventricle The left ventricle is grossly normal size. Left ventricular systolic function is normal. The Ejection Fraction estimate is 60-65%. Doppler measurements suggest impaired left ventricular relaxation, which is associated with grade I/IV or mild diastolic dysfunction. No regional wall motion abnormalities noted. The left ventricular apex is not well visualized. Thrombus can not be excluded. Right Ventricle The right ventricle is grossly normal size. Right ventricular function cannot be assessed due to poor image quality. Atria The right atrium is normal. The left atrial size is normal. Interarterial septum not well visualized and not well dopplered. Cannot comment on ASD/PFO presence. Mitral Valve The mitral valve is grossly normal. There is no evidence of mitral valve prolapse. There is no mitral valve stenosis. There is no mitral regurgitation noted. Aortic Valve The aortic valve is not well visualized secondary to technical limitations. There is no aortic valve stenosis. No aortic regurgitation is present. Tricuspid Valve The tricuspid valve is not well visualized, but is grossly normal. Tricuspid regurgitation jet envelope not well defined to measure RV systolic pressure accurately. Pulmonic Valve The pulmonic valve is not well visualized. Great Vessels The inferior vena cava appeared normal and decreased > 50% with respiration (RAP 5-10 mmHg). Effusions Trace anterior and apical, hemodynamically insignificant pericardial effusion. : JOSE G IRELAND Antonio
[2020-08-18 06:53] LABS: ANION GAP 10 (5-19); BLOOD UREA NITROGEN 14 mg/dL (7-20); CARBON DIOXIDE 26 mmol/L (22-30); CHLORIDE 103 mmol/L (98-107); CHOLESTEROL 246.81 mg/dL (0-200); GLUCOSE 96 mg/dL (75-110); POTASSIUM 3.9 mmol/L (3.6-5.0); TRIGLYCERIDES 241 mg/dL (<150)
[2020-08-18 07:04] LABS: DIRECT LDL 156 mg/dL (<100)
[2020-08-18 07:07] LABS: VLDL CHOLESTEROL 48.2 mg/dL (10-31)
[2020-08-18 07:09] LABS: FREE T4 (FREE THYROXINE) 1.04 ng/dL (0.78-2.19)
[2020-08-18 07:23] LABS: THYROID STIMULATING HORMONE 1.93 uIU/mL (0.47-4.68)
[2020-08-18] MEDS: PANTOPRAZOLE SODIUM 40 MG TABLET.DR PO SCH (08:00)
[2020-08-18] MEDS ORDERED: INFLUENZA QUAD (6MOS+) 2020-21 VAC 0.5 ML SYR IM ONE (08:00)
[2020-08-18] MEDS: IBUPROFEN 600 MG TABLET PO SCH ×2 (09:13→12:24)
[2020-08-18] MEDS: AMLODIPINE BESYLATE 5 MG TABLET PO SCH (10:20)
[2020-08-18] MEDS: ASPIRIN 81 MG TABLET, ENT COATED PO SCH (10:20)
[2020-08-18] MEDS: LISINOPRIL 10 MG TABLET PO SCH (10:21)
[2020-08-18] MEDS: NICOTINE 21 MG/24 HR PATCH.TD24 TD SCH (10:21)
[2020-08-18] MEDS: FLUTICASONE/VILANTEROL 100-25 MCG/DOSE IH SCH (10:21)
--- NOTE | 2020-08-18 11:23 | DRAGON STRESS TEST REPORT ---
Name: Delbert Olson : Feb Date: AUG 28 The patient underwent a stress/rest, single isotope SPECT Imaging with pharmacological stress and gated SPECT imaging on for evaluation of atypical chest pain. The patient underwent infusion of regadnoson 0.4mg IV using the standard protocol. The heart rate was 65 beats per minute at baseline and increased to 105 beats during the infusion of regadenoson. The resting blood pressure was 121/77 mm/Hg and increased to 127/70 mm/Hg, which is a normal response. The patient complained of mild dyspnea during the procedure. The resting electrocardiogram demonstrated NSR. Stress electrocardiogram is non- diagnostic in the setting of pharmacological stress. Myocardial perfusion imaging was performed at rest following the injection of 14.87 mCi of sestamibi. At peak pharmacolgic effect, the patient was injected with 42.8 mCi of sestamibi. Gating post-stress tomographic imaging was performed 60 minutes after stress. Findings The overall quality of the study is good. Raw images demonstrate mild inferior wall. Left ventricular cavity is noted to be normal on the rest and stress studies. Resting SPECT images demonstrate a small, of mild intensity perfusion defect in the inferior wall. The stress images demonstrate a small, of mild intensity perfusion defect in the inferior wall. Gated SPECT imaging reveals normal myocardial thickening and wall motion. The left ventricular ejection fraction was calculated to be 53% Impression -The fixed defect in the inferior wall is consistent with attenuation artifact. -Myocardial perfusion imaging is normal with the above artifacts. -There is no scintigraphic evidence of ischemia or infarct. -Overall left ventricular systolic function was normal without wall motion abnormalities. -There are no prior studies for comparison. [facility]
--- NOTE | 2020-08-18 11:27 | PDOC PROGRESS REPORT ---
Subjective Date:: 08/18/20 Subjective:: AUSTEN CADENA is a 50 year old male with history of hypertension, COPD, questionable hyperlipidemia, smoker of 1 pack/day for 40 years and with family history of premature coronary artery disease in his mother who had her first myocardial infarction at 52 who is consulted by the emergency department for evaluation of chest pain. The patient describes his chest pain as a pressure, diffusely localized in the chest. It had been recurrent on and off for several months however it became constant 2 days ago, it occasionally radiates to the left shoulder, there are no alleviating or exacerbating factors and is not associated with shortness of breath, palpitations, dizziness, lightheadedness, diaphoresis, syncope or presyncope. 08/18/2020: The patient had an uneventful night and denies recurrence of index chest pain. His telemetry is unremarkable. His blood pressure is at goal. He ruled out for ACS with 3 negative cardiac troponins. His pharmacological MPS this morning is negative for ischemia and infarct. Physical exam on 08/18/2020: GENERAL: Obese. Pleasant and conversational. Oriented x3 with normal mood. Not in acute distress. Well groomed and well developed. HEENT: Normocephalic, atraumatic. Pupils equal. Sclerae anicteric. Oropharynx moist. NECK: No JVD. No carotid bruits. LUNGS: Clear to auscultation bilaterally. Normal respiratory effort without the use of accessory muscles or intercostal retractions. CARDIOVASCULAR: Regular rate and rhythm, normal S1 and S2 without murmurs, rubs, or gallops. PMI not displaced. ABDOMEN: No masses or tenderness to palpation. No bruit. No splenomegaly or hepatomegaly. No abdominal aorta bruit noted. EXTREMITIES: No edema, no cyanosis, no clubbing. +2 pulses femoral and pedal pulses bilaterally. SKIN: No lesions or rashes. MUSCULOSKELETAL: No chest tenderness to palpation. NEUROLOGIC: Nonfocal. No gross sensory or motor deficits bilateral upper or lower extremities. Cardiac studies: The patient underwent a stress/rest, single isotope SPECT Imaging with pharmacological stress and gated SPECT imaging on for evaluation of atypical chest pain. The patient underwent infusion of regadnoson 0.4mg IV using the standard protocol. The heart rate was 65 beats per minute at baseline and increased to 105 beats during the infusion of regadenoson. The resting blood pressure was 121/77 mm/Hg and increased to 127/70 mm/Hg, which is a normal response. The patient complained of mild dyspnea during the procedure. The resting electrocardiogram demonstrated NSR. Stress electrocardiogram is non- diagnostic in the setting of pharmacological stress. Myocardial perfusion imaging was performed at rest following the injection of 14.87 mCi of sestamibi. At peak pharmacolgic effect, the patient was injected with 42.8 mCi of sestamibi. Gating post-stress tomographic imaging was performed 60 minutes after stress. Findings The overall quality of the study is good. Raw images demonstrate mild inferior wall. Left ventricular cavity is noted to be normal on the rest and stress studies. Resting SPECT images demonstrate a small, of mild intensity perfusion defect in the inferior wall. The stress images demonstrate a small, of mild intensity perfusion defect in the inferior wall. Gated SPECT imaging reveals normal myocardial thickening and wall motion. The left ventricular ejection fraction was calculated to be 53% Impression -The fixed defect in the inferior wall is consistent with attenuation artifact. -Myocardial perfusion imaging is normal with the above artifacts. -There is no scintigraphic evidence of ischemia or infarct. -Overall left ventricular systolic function was normal without wall motion abnormalities. -There are no prior studies for comparison. Echocardiogram on 08/17/2020: -LV systolic function is normal. -EF 60 to 65%. -Grade 1 diastolic dysfunction. -No regional wall motion abnormalities noted. -Trace, hemodynamically insignificant anterior pericardial effusion. Reason For Visit: CHEST PAIN Physical Exam Vital Signs: Temp Pulse Resp BP Pulse Ox 98.2 F 67 17 97/61 L 96 08/18/20 00:08 08/18/20 02:00 08/18/20 00:08 08/18/20 00:08 08/18/20 00:08 Intake & Output 08/16/20 08/17/20 08/18/20 06:59 06:59 06:59 Intake Total 480 Balance 480 Weight 102.058 kg 98.8 kg Results Laboratory Results: 08/16/20 21:39 08/16/20 21:39 08/16/20 08/16/20 08/17/20 21:39 21:39 01:25 Creatine Kinase 89 CK-MB (CK-2) 1.44 Troponin I < 0.012 < 0.012 08/17/20 10:17 Creatine Kinase CK-MB (CK-2) Troponin I < 0.012 Impressions: Chest X-Ray 08/16/20 21:29 IMPRESSION: No acute findings in chest. copyright 2011 [employer]- All Rights Reserved Abdomen/Pelvis CTA 08/17/20 07:04 IMPRESSION: 1. NO ABDOMINAL AORTIC ANEURYSM, DISSECTION OR SIGNIFICANT STENOSIS. NO SIGNIFICANT FINDINGS IN THE ABDOMEN. 2. MILDLY DISTENDED GALLBLADDER WITHOUT SECONDARY INFLAMMATORY CHANGE. NO RADIOPAQUE GALLSTONES. 3. SEE SAME-DAY CHEST Chest/Abdomen CTA 08/17/20 07:04 IMPRESSION: 1. No evidence of acute aortic pathology or other acute intrathoracic process. Suboptimal bolus timing for evaluation of pulmonary embolus. 2. See same-day abdomen CT for findings below the diaphragm. 08/16/20 21:39 08/16/20 21:39 MCV 91 fl (80-97) 08/16/20 21:39 MCH 32.2 pg (27.0-33.4) 08/16/20 21:39 MCHC 35.4 g/dL (32.0-36.0) 08/16/20 21:39 RDW 13.8 % (11.5-14.0) 08/16/20 21:39 Seg Neutrophils % 59.2 % (42-78) 08/16/20 21:39 Chloride 97 mmol/L (98-107) L 08/16/20 21:39 Carbon Dioxide 33 mmol/L (22-30) H 08/16/20 21:39 Anion Gap 7 (5-19) 08/16/20 21:39 Est GFR ( Amer) > 60 (>60) 08/16/20 21:39 Glucose 105 mg/dL (75-110) 08/16/20 21:39 Calcium 10.9 mg/dL (8.4-10.2) H 08/16/20 21:39 Total Bilirubin 0.8 mg/dL (0.2-1.3) 08/16/20 21:39 AST 29 U/L (17-59) 08/16/20 21:39 Alkaline Phosphatase 83 U/L (38-126) 08/16/20 21:39 Total Protein 7.6 g/dL (6.3-8.2) 08/16/20 21:39 Albumin 4.6 g/dL (3.5-5.0) 08/16/20 21:39 08/16/20 08/16/20 08/17/20 21:39 21:39 01:25 Creatine Kinase 89 CK-MB (CK-2) 1.44 Troponin I < 0.012 < 0.012 08/17/20 10:17 Creatine Kinase CK-MB (CK-2) Troponin I < 0.012 Current Medication List Generic Name Dose Route Start Last Admin Trade Name Sylwia PRN Reason Stop Dose Admin Acetaminophen 975 mg 08/17/20 09:39 Acetaminophen 325 Mg Tablet PO 09/16/20 09:38 Q4HP PRN FOR PAIN Amlodipine Besylate 5 mg 08/17/20 10:00 08/17/20 11:09 Amlodipine Besylate 5 Mg Tablet PO 09/16/20 09:59 5 mg DAILY HOLLI Administration Aspirin 81 mg 08/17/20 10:00 08/17/20 11:09 Aspirin 81 Mg Tablet, Ent Coated PO 09/16/20 09:59 81 mg DAILY HOLLI Administration Dextrose 12.5 gm 08/17/20 08:50 Dextrose 50%-Water 25 Gm/50 Ml Disp.Syrin IV 09/16/20 08:49 PRN PRN FOR BG 50-69 IN ALERT PATIENT Protocol Dextrose 25 gm 08/17/20 08:50 Dextrose 50%-Water 25 Gm/50 Ml Disp.Syrin IV 09/16/20 08:49 PRN PRN See Label Comments Protocol Fluticasone/Vilanterol 1 inh 08/17/20 16:30 08/17/20 16:24 Fluticasone/Vilanterol 100-25 Mcg/Dose IH 09/16/20 16:29 Not Given DAILY HOLLI Glucagon 1 mg 08/17/20 08:50 Glucagon,Human Recomb 1 Mg Inj SUBCUT 09/16/20 08:49 PRN PRN Evaluate for BG < 70 Protocol Glucose 15 gm 08/17/20 08:50 Dextrose 40% Gel 15 Gm Tube PO 09/16/20 08:49 PRN PRN For BG 50-69 in Alert Patient Protocol Glucose 30 gm 08/17/20 08:50 Dextrose 40% Gel 15 Gm Tube PO 09/16/20 08:49 PRN PRN FOR BG < 50 IN ALERT PATIENT Protocol Ibuprofen 600 mg 08/17/20 12:00 08/17/20 16:24 Ibuprofen 600 Mg Tablet PO 09/16/20 11:59 Not Given MEALS [facility] Influenza Virus Vaccine Quadrival 0.5 ml 08/18/20 08:00 Influenza Quad (6mos+) Vac 0.5 Ml Syr IM 08/18/20 08:01 .ONCE ONE Lisinopril 40 mg 08/17/20 10:00 08/17/20 11:09 Lisinopril 10 Mg Tablet PO 09/16/20 09:59 40 mg DAILY HOLLI Administration Nicotine 1 each 08/17/20 10:00 08/17/20 11:08 Nicotine 21 Mg/24 Hr Patch.Td24 TD 09/16/20 09:59 1 each DAILY HOLLI Administration Nitroglycerin 1 tab 08/17/20 05:43 08/17/20 06:32 Nitroglycerin 0.4 Mg/Tab 25 Tab/Bottle SL 09/16/20 05:42 1 tab Q5MP PRN Administration FOR CHEST PAIN Pantoprazole Sodium 40 mg 08/17/20 17:00 08/17/20 16:23 Pantoprazole Sodium 40 Mg Tablet.Dr HUMMEL 09/16/20 16:59 40 mg BID@0600,1700 HOLLI Administration Discontinued Medications Generic Name Dose Route Start Last Admin Trade Name Freq PRN Reason Stop Dose Admin Aspirin 325 mg 08/17/20 05:44 08/17/20 06:04 Aspirin 325 Mg Tablet PO 08/17/20 05:45 325 mg NOW ONE Administration Pantoprazole Sodium 20 mg 08/17/20 09:45 Pantoprazole Sodium 20 Mg Tablet.Dr HUMMEL 09/16/20 09:44 Q6AM [facility] Assessment & Plan - Diagnosis (1) Chest pain Is this a current diagnosis for this admission?: Yes Plan: No more recurrences, normal pharmacological MPS. Recommendations: -No further ischemic assessment indicated at this time. -Primary prevention measures. -The patient may be discharged from the CV standpoint. -F/U with PCM. (2) Hypertension Qualifiers: Hypertension type: essential hypertension Qualified Code(s): I10 - Essential (primary) hypertension Is this a current diagnosis for this admission?: Yes Plan: His blood pressure is at goal. We will continue his outpatient medical regimen. (3) Tobacco use disorder, continuous Is this a current diagnosis for this admission?: Yes Plan: I discussed with the patient importance of quitting smoking. Recommendations: -Hospitalist team to address tobacco cessation strategies.
[2020-08-18 12:59] VITALS: BP 142/86
[2020-08-18] MEDS ORDERED: REGADENOSON INJ 0.4 MG/5 ML DISP.SYRIN IV ONE (13:56)
--- NOTE | 2020-08-18 18:21 | PDOC DISCHARGE SUMMARY ---
Impression - Admit/DC Date/PCP Admission Date/Primary Care Provider: 08/17/20 08:25 Discharge Date: 08/18/20 - Discharge Diagnosis (1) Chest pain Is this a current diagnosis for this admission?: Yes (2) Hyperlipidemia Is this a current diagnosis for this admission?: Yes (3) COPD (chronic obstructive pulmonary disease) Is this a current diagnosis for this admission?: Yes (4) Hypertension Is this a current diagnosis for this admission?: Yes (5) Tobacco use disorder, continuous Is this a current diagnosis for this admission?: Yes - Additional Information Resuscitation Status: Full Code Discharge Diet: Cardiac Discharge Activity: Activity As Tolerated Referrals: [facility] [Outside] - 08/18/20 2:46 pm (CLINIC WILL CONTACT THE PATIENT WITH FOLLOW) Prescriptions: Fluticasone/Vilanterol [Breo 100-25 Mcg Ellipta 14 Dose/Dpi] 1 inh IH DAILY #1 inhaler Simvastatin 20 mg PO DAILY #30 tablet Home Medications: Amlodipine Besylate [Norvasc 5 mg Tablet] 5 mg PO DAILY 30 Days #30 tablet 11/22/19 Lisinopril [Zestril] 40 mg PO DAILY #30 tablet 11/22/19 Aspirin [Ecotrin 81 mg EC Tablet] 81 mg PO DAILY 08/17/20 Fluticasone/Vilanterol [Breo 100-25 Mcg Ellipta 14 Dose/Dpi] 1 inh IH DAILY #1 inhaler 08/18/20 Simvastatin 20 mg PO DAILY #30 tablet 08/18/20 History of Present Illiness History of Present Illness: AUSTEN CADENA is a 50 year old male with history of HTN and COPD who presented to the ED today with concerns regarding chest pain. Reports 2 day history of substernal chest pressure that radiates to left shoulder and back. Has experienced similar pain intermittently in the past, differentiates this time, as it is now constant. Denies alleviating/exacerbating symptoms. He denies associated SOB, palpitations, lightheadedness, diaphoresis, syncope or presyncope. Upon further questioning patient admits to reflux symptoms including cough and burning in throat, primarily in the mornings and following spicy meals. He has never been dx'd with reflux and denies previous tx. 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 Last evaluated by PCP x2 years ago. He takes Amlodipine and Lisinopril for his HTN. No COPD treatment at home. Does have a "daily cough" which he relates to his 40yr hx of cigarette use. Smokes 1 ppd. He has rather significant cardiac FMHx with mother MS age 52, and maternal grandmother MS. Evaluation in the ED pt hemodynamically stable, VSS WNL. Negative cardiac enzymes x3. EKG without ischemic changes. CXR, CT abd/chest all without acute findings. Patient was evaluated by cardiology, Dr. Whitfield, in the Ed. Who recommends Laxiscan stress test on 08/18/2020 given pt's presenting symptoms and cardiac risk factors patient will be admitted to the hospitalist team for further evaluation, observation and treatment. Hospital Course Hospital Course: Troponins remain negative. His stress test was negative. He will continue taking lisinopril and amlodipine and aspirin as an outpatient. Simvastatin was prescribed to help with his hyperlipidemia. He was also encouraged to avoid refined sugars in order to help his triglycerides come down. He was strongly advised to quit smoking. He was advised follow-up with his primary care provider within 1 week. His labs and examination were reassuring and he was discharged in stable condition. Physical Exam Vital Signs: Temp Pulse Resp BP Pulse Ox 98.1 F 77 18 142/86 H 97 08/18/20 14:40 08/18/20 14:40 08/18/20 14:40 08/18/20 14:40 08/18/20 14:40 Intake & Output 08/17/20 08/18/20 08/19/20 06:59 06:59 06:59 Intake Total 480 420 Balance 480 420 Weight 102.058 kg 98.8 kg General appearance: PRESENT: no acute distress, cooperative, disheveled, obese Respiratory exam: PRESENT: clear to auscultation ketan, symmetrical, unlabored. ABSENT: accessory muscle use, chest wall tenderness, crackles, prolonged expiratory phas, rhonchi, tachypnea, wheezes Cardiovascular exam: PRESENT: RRR, +S1, +S2 Pulses: PRESENT: normal carotid pulses Vascular exam: PRESENT: normal capillary refill GI/Abdominal exam: PRESENT: normal bowel sounds, soft. ABSENT: distended, guarding, rebound, tenderness Extremities exam: ABSENT: clubbing, pedal edema Musculoskeletal exam: PRESENT: ambulatory, normal inspection. ABSENT: deformity Neurological exam: PRESENT: alert, awake, oriented to person, oriented to place, oriented to situation Psychiatric exam: PRESENT: appropriate affect, normal mood Skin exam: PRESENT: dry, warm Results Laboratory Results: WBC 10.4 10^3/uL (4.0-10.5) 08/16/20 21:39 RBC 5.03 10^6/uL (4.35-5.55) 08/16/20 21:39 Hgb 16.2 g/dL (13.5-17.0) 08/16/20 21:39 Hct 45.8 % (37.9-51.0) 08/16/20 21:39 MCV 91 fl (80-97) 08/16/20 21:39 MCH 32.2 pg (27.0-33.4) 08/16/20 21:39 MCHC 35.4 g/dL (32.0-36.0) 08/16/20 21:39 RDW 13.8 % (11.5-14.0) 08/16/20 21:39 Plt Count 234 10^3/uL (150-450) 08/16/20 21:39 Lymph % (Auto) 31.8 % (13-45) 08/16/20 21:39 Perkins % (Auto) 6.5 % (3-13) 08/16/20 21:39 Eos % (Auto) 2.0 % (0-6) 08/16/20 21:39 Baso % (Auto) 0.5 % (0-2) 08/16/20 21:39 Absolute Neuts (auto) 6.1 10^3/uL (1.7-8.2) 08/16/20 21:39 Absolute Lymphs (auto) 3.3 10^3/uL (0.5-4.7) 08/16/20 21:39 Absolute Monos (auto) 0.7 10^3/uL (0.1-1.4) 08/16/20 21:39 Absolute Eos (auto) 0.2 10^3/uL (0.0-0.6) 08/16/20 21:39 Absolute Basos (auto) 0.0 10^3/uL (0.0-0.2) 08/16/20 21:39 Seg Neutrophils % 59.2 % (42-78) 08/16/20 21:39 Sodium 138.5 mmol/L (137-145) 08/18/20 06:02 Potassium 3.9 mmol/L (3.6-5.0) 08/18/20 06:02 Chloride 103 mmol/L (98-107) 08/18/20 06:02 Carbon Dioxide 26 mmol/L (22-30) 08/18/20 06:02 Anion Gap 10 (5-19) 08/18/20 06:02 BUN 14 mg/dL (7-20) 08/18/20 06:02 Creatinine 0.72 mg/dL (0.52-1.25) 08/18/20 06:02 Est GFR ( Amer) > 60 (>60) 08/18/20 06:02 Est GFR (MDRD) Non-Af > 60 (>60) 08/18/20 06:02 Glucose 96 mg/dL (75-110) 08/18/20 06:02 Calcium 9.0 mg/dL (8.4-10.2) 08/18/20 06:02 Total Bilirubin 0.8 mg/dL (0.2-1.3) 08/16/20 21:39 Direct Bilirubin 0.2 mg/dL (0.0-0.4) 08/16/20 21:39 Neonat Total Bilirubin Not Reportable 08/16/20 21:39 Neonat Direct Bilirubin Not Reportable 08/16/20 21:39 Neonat Indirect Bili Not Reportable 08/16/20 21:39 AST 29 U/L (17-59) 08/16/20 21:39 ALT 23 U/L (<50) 08/16/20 21:39 Alkaline Phosphatase 83 U/L (38-126) 08/16/20 21:39 Creatine Kinase 89 U/L (55-170) 08/16/20 21:39 CK-MB (CK-2) 1.44 ng/mL (<4.55) 08/16/20 21:39 Troponin I < 0.012 ng/mL 08/17/20 10:17 Total Protein 7.6 g/dL (6.3-8.2) 08/16/20 21:39 Albumin 4.6 g/dL (3.5-5.0) 08/16/20 21:39 Triglycerides 241 mg/dL (<150) H 08/18/20 06:02 Cholesterol 246.81 mg/dL (0-200) H 08/18/20 06:02 LDL Cholesterol Direct 156 mg/dL (<100) H 08/18/20 06:02 VLDL Cholesterol 48.2 mg/dL (10-31) H 08/18/20 06:02 HDL Cholesterol 40 mg/dL (>40) 08/18/20 06:02 TSH 1.93 uIU/mL (0.47-4.68) 08/18/20 06:02 Free T4 1.04 ng/dL (0.78-2.19) 08/18/20 06:02 08/16/20 08/17/20 08/17/20 21:39 01:25 10:17 CK-MB (CK-2) 1.44 Troponin I < 0.012 < 0.012 < 0.012 Impressions: Chest X-Ray 08/16/20 21:29 IMPRESSION: No acute findings in chest. copyright 2011 [employer]- All Rights Reserved Abdomen/Pelvis CTA 08/17/20 07:04 IMPRESSION: 1. NO ABDOMINAL AORTIC ANEURYSM, DISSECTION OR SIGNIFICANT STENOSIS. NO SIGNIFICANT FINDINGS IN THE ABDOMEN. 2. MILDLY DISTENDED GALLBLADDER WITHOUT SECONDARY INFLAMMATORY CHANGE. NO RADIOPAQUE GALLSTONES. 3. SEE SAME-DAY CHEST Chest/Abdomen CTA 08/17/20 07:04 IMPRESSION: 1. No evidence of acute aortic pathology or other acute intrathoracic process. Suboptimal bolus timing for evaluation of pulmonary embolus. 2. See same-day abdomen CT for findings below the diaphragm. Plan Time Spent: Greater than 30 Minutes Stroke Is this a Stroke Patient?: No Acute Heart Failure Is this a Heart Failure Patient?: No
== END 2020-08-18 15:20 | disposition home or self-care (01) ==
LOC: ER 20:27 → EH 08-17 08:25 → 4S 08-17 10:44
PROVIDERS: ADMIT Internal Medicine; ATTEND Family Medicine
DX: R07.9 Chest pain, unspecified (principal); I10 Essential (primary) hypertension; E78.5 Hyperlipidemia, unspecified; J44.9 Chronic obstructive pulmonary disease, unspecified; K21.9 Gastro-esophageal reflux disease without esophagitis; M25.512 Pain in left shoulder; M54.9 Dorsalgia, unspecified; E66.9 Obesity, unspecified; I25.10 Atherosclerotic heart disease of native coronary artery without angina pectoris; Z79.899 Other long term (current) drug therapy; Z79.82 Long term (current) use of aspirin; F17.210 Nicotine dependence, cigarettes, uncomplicated
CPT/HCPCS: 36415; 71045; 71275; 74174; 78452; 80048; 80053; 80061; 82550; 82553; 84439; 84443; 84484; 85025; 93005; 93010; 93017; 93306; 99285; A9500; G0378; J2785; J3490; Q9969